=== PATIENT | female | born 1970 | race Caucasian/White ===

== ENCOUNTER 2021-09-01 09:32 | Emergency (ER) | payer MEDICAID, SELFPAY ==
--- NOTE | ~2021-09-01 | CT_ITS ---
Indication: Trauma EXAMINATION: CT of the brain and CT cervical spine. Axial imaging with coronal and sagittal reformatted images. This CT examination was performed using dose optimization techniques as appropriate, variously including the following: *Automated exposure control *Adjustment of mA and/or kV according to patient size (this includes techniques or standardized protocols for targeted exams where dose is matched to indication/reason for exam; i.e. extremities or head) *Use of iterative reconstruction technique. Radiation dose [address] brain; There is no midline shift. There is no mass effect. There is no hemorrhage. The basal cisterns appear patent. The posterior fossa is grossly within normal limits. The cisneros-white matter appears preserved. Ventricular system is within normal limits. There is no fracture on the bone windows. CT cervical spine; Negative for acute fracture or dislocation. There is reversal of the normal cervical lordosis. [place] at C5-6. This could be due to due to position or spasm. Degenerative change at C5-6 and C6-7 are noted. [place] at these levels. CT/CT head/brain wo con IMPRESSION: Negative acute noncontrast CT of the brain. No acute fracture or dislocation of the cervical spine. Reversal of the normal cervical lordosis which could be due to position or spasm. Degenerative changes are noted.
--- NOTE | ~2021-09-01 | CT_ITS ---
Indication: Trauma EXAMINATION: CT of the brain and CT cervical spine. Axial imaging with coronal and sagittal reformatted images. This CT examination was performed using dose optimization techniques as appropriate, variously including the following: *Automated exposure control *Adjustment of mA and/or kV according to patient size (this includes techniques or standardized protocols for targeted exams where dose is matched to indication/reason for exam; i.e. extremities or head) *Use of iterative reconstruction technique. Radiation dose [address] brain; There is no midline shift. There is no mass effect. There is no hemorrhage. The basal cisterns appear patent. The posterior fossa is grossly within normal limits. The cisneros-white matter appears preserved. Ventricular system is within normal limits. There is no fracture on the bone windows. CT cervical spine; Negative for acute fracture or dislocation. There is reversal of the normal cervical lordosis. [place] at C5-6. This could be due to due to position or spasm. Degenerative change at C5-6 and C6-7 are noted. [place] at these levels. CT/CT cervical spine wo con IMPRESSION: Negative acute noncontrast CT of the brain. No acute fracture or dislocation of the cervical spine. Reversal of the normal cervical lordosis which could be due to position or spasm. Degenerative changes are noted.
[2021-09-01 09:41] VITALS: BP 155/91; PULSE 90; RESP 18; TEMP 36.6; O2SAT 98; BMI 26.4
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
[2021-09-01] MEDS: Acetaminophen 325 MG TABLET 975 MG PO (15:15)
[2021-09-01] MEDS: Cyclobenzaprine HCl 10 MG TABLET PO (15:16)
[2021-09-01] MEDS: Ketorolac Tromethamine 30 MG/ML VIAL IM (17:43)
== END 2021-09-01 17:50 | disposition home or self-care (01) ==
PROVIDERS: Emergency Provider Emergency Medicine
DX: S06.0X0A Concussion without loss of consciousness, initial encounter (principal); S13.4XXA Sprain of ligaments of cervical spine, initial encounter; S50.312A Abrasion of left elbow, initial encounter; S50.311A Abrasion of right elbow, initial encounter; W10.8XXA Fall (on) (from) other stairs and steps, initial encounter; Y93.89 Activity, other specified; Y92.038 Other place in apartment as the place of occurrence of the external cause; Y99.9 Unspecified external cause status
CPT/HCPCS: 70450; 72125; 96372; 99283; 99284; J1885

== ENCOUNTER 2021-09-22 13:58 | Emergency (ER) | payer OTHER, MEDICAID, SELFPAY ==
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
[2021-09-22 14:08] VITALS: BP 122/86; BP 131/75; PULSE 86; PULSE 88; RESP 18; TEMP 37.1; O2SAT 96; O2SAT 99; BMI 28.3
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
[2021-09-22] MEDS: Ondansetron ODT 4 MG TAB.RAPDIS TRANSLINGU (15:31)
[2021-09-22] MEDS: Cyclobenzaprine HCl 10 MG TABLET PO (15:31)
[2021-09-22] MEDS: HYDROcodone Bit/Acetam 5/325 TABLET 1 TAB PO (15:31)
== END 2021-09-22 17:19 | disposition home or self-care (01) ==
PROVIDERS: Emergency Provider Emergency Medicine; PCP Family Medicine
DX: S09.90XA Unspecified injury of head, initial encounter (principal); S63.502A Unspecified sprain of left wrist, initial encounter; S66.912A Strain of unspecified muscle, fascia and tendon at wrist and hand level, left hand, initial encounter; S16.1XXA Strain of muscle, fascia and tendon at neck level, initial encounter; S46.812A Strain of other muscles, fascia and tendons at shoulder and upper arm level, left arm, initial encounter; V43.52XA Car driver injured in collision with other type car in traffic accident, initial encounter; Y93.89 Activity, other specified; Y92.414 Local residential or business street as the place of occurrence of the external cause; Y99.9 Unspecified external cause status
CPT/HCPCS: 70450; 71250; 72125; 73080; 73100; 99283; 99284